=== PATIENT | male | born 1995 | race Caucasian/White ===

== ENCOUNTER 2020-04-14 05:11 | Emergency (ER) | payer BC ==
[~2020-04-14] VITALS: Ht 172.7 cm; Wt 56.7 kg
[2020-04-14] MEDS ORDERED: CIPROFLOXACIN500 MG PO (06:24)
[2020-04-14] MEDS ORDERED: NORCO 5-325 TA1 EACH PO (06:25)
== END 2020-04-14 06:34 | disposition home or self-care (01) ==
LOC: ED 05:11
DX: R31.29 Other microscopic hematuria (principal)
CPT/HCPCS: 81001; 99283

== ENCOUNTER 2020-04-16 23:15 | Emergency (ER) | payer BC ==
[~2020-04-16] VITALS: Ht 172.7 cm; Wt 56.7 kg
[~2020-04-16 23:15] MED LIST: CIPROFLOXACIN500 MG PO; NORCO 5-325 TA1 EACH PO
--- OUTSIDE RECORDS SUMMARY | 2020-04-16 23:18 | XMS ---
PreManage Notification: BIANCA CORADO [employer] Location Manager Events No recent Security Events currently on file CRITERIA MET - [facility] - 2 Visits in 30 Days CARE PROVIDERS There are no care providers on record at this time. Rodrigo has no Care Guidelines for this patient. [place] VISIT COUNT (12 [address] [facility] NOTE: Visits indicate total known visits. ED/C VISIT TRACKING (12 MO.) 04/16/2020 23:[address] [facility] [place] TYPE: Emergency COMPLAINT: - LEFT FLANK PAIN 04/14/2020 05:13 [facility] [place] TYPE: Emergency COMPLAINT: - SCROTUM PAIN,URINATING BLOOD 10/30/2019 10:02 [facility] [place] TYPE: Emergency DIAGNOSES: - Calculus of kidney - Unspecified abdominal pain - Calculus of ureter - Flank Pain INPATIENT VISIT TRACKING (12 MO.) No inpatient visits to display in this time frame [email or web address]
== END 2020-04-17 02:10 | disposition home or self-care (01) ==
LOC: ED 23:15
DX: N20.0 Calculus of kidney (principal)
CPT/HCPCS: 80053; 81001; 85025; 96374; 99284-25; J1885